=== PATIENT | male | born 1995 | race Caucasian/White ===

== ENCOUNTER 2017-01-16 19:05 | Emergency (ER) | payer OTHER ==
[~2017-01-16] VITALS: Ht 175.3 cm; Wt 103.4 kg
[2017-01-16] MEDS ORDERED: CIPROFLOXACIN HCL 500 MG TAB PO ONE (19:45)
[2017-01-16 21:47] LABS: Basophils # (auto) 0 uL; Basophils % (auto) 0.5 % (0.0-2.0); Eosinophils # (auto) 0.2 uL; Eosinophils % (auto) 3.5 % (0.0-7.0); Hematocrit 47.3 % (41.0-53.0); Lymphocytes # (auto) 2.7 uL; Lymphocytes % (auto) 44.3 % (10.0-50.0); Mean Corpuscular Hemoglobin 30.6 pg (28.0-32.0); Mean Corpuscular Hgb Conc. 33.9 g/dL (32.0-36.0); Mean Corpuscular Volume 90.4 fL (80.0-100.0); Mean Platelet Volume 8.7 fL (6.9-10.8); Monocytes # (auto) 0.7 uL; Monocytes % (auto) 11.8 % (0.0-12.0); Neutrophils # (auto) 2.4 uL; Neutrophils % (auto) 39.9 % (37.0-80.0); Nucleated Red Blood Cells % 0.2 %; Platelet Count (auto) 265 10^3/uL (140-450); Red Cell Distribution Width 12.5 % (11.8-14.3)
[2017-01-16 21:50] VITALS: BP 124/87
[2017-01-16 22:04] LABS: Albumin 4.2 g/dL (3.4-5.0); BUN/Creatinine Ratio 18.5; Bilirubin, Total 0.3 mg/dL (0.2-1.0); Calcium 8.7 mg/dL (8.5-10.1); Potassium 3.7 mmol/L (3.5-5.1)
== END 2017-01-16 21:36 | disposition home or self-care (01) ==
LOC: ER 19:15
DX: Z20.811 Contact with and (suspected) exposure to meningococcus (principal)
CPT/HCPCS: 36415; 80053; 85025